=== PATIENT | female | born 1985 | race Caucasian/White ===

== ENCOUNTER 2016-11-16 17:49 | Emergency (ER) | payer OTHER ==
[~2016-11-16] VITALS: Ht 142.2 cm; Wt 102.8 kg
[2016-11-16 17:54] VITALS: TEMP 36.7; Ht 142.2 cm; Wt 102.8 kg
[2016-11-16] MEDS ORDERED: IBUP-1050 PO (19:02)
--- NOTE | 2016-11-16 19:56 | DIAGNOSTIC IMAGING REPORT ---
ULTRASOUND LEFT LOWER EXTREMITY VENOUS CLINICAL HISTORY: Left groin pain radiating to the foot. COMPARISON STUDY: No priors. TECHNIQUE: Real-time, grayscale, and color Doppler sonography of the deep veins of the left lower extremity was performed from the inguinal crease to the calf. Compression and augmentation were utilized. FINDINGS: There is no sonographic evidence of deep venous thrombosis identified in the left lower extremity. The common femoral, superficial femoral, and popliteal veins are patent and normally compressible. The greater saphenous vein and the profunda femoris vein at the junction with the common femoral vein are clear. The visualized calf veins are patent. IMPRESSION: There is no sonographic evidence of deep venous thrombosis identified in the left lower extremity. Electronically signed by: Monroe Feng M.D. 11/16/2016 7:54 PM Dictated Date/Time: 11/16/2016 7:54 PM
[2016-11-16 20:03] VITALS: BP 147/84; PULSE 76; O2SAT 98
[2016-11-16] MEDS ORDERED: METH4PAK PO (20:15)
--- NOTE | 2016-11-17 00:29 | EMERGENCY ROOM VISIT NOTE ---
History First contact with patient: 18:02 Chief Complaint: GROIN PAIN Stated Complaint: GROIN PAIN History of Present Illness The patient is a 31 year old female who presents to the Emergency Room with complaints of left groin pain radiating into her leg and great toe. The patient reports that her groin pain started when she stood up from a chair at work today, feeling a sharp stabbing pain. The patient is concerned that she may potentially have a blood clot. She denies any prior history of DVT or coagulopathies. The patient denies oral contraceptive use. She is a smoker. She does have a history of chronic lower back pain, but currently has not noticed any pain in the back or left buttock. She has no worsening groin pain with weightbearing, and denies any history of chronic hip pain or other significant arthritic history. She rates her discomfort a 6 out of 10. Review of Systems 10 system review was performed and was negative except for pertinent positives and negatives as indicated in history of present illness Past Medical/Surgical History Medical Problems: (1) Gestational hypertension (2) Morbid obesity with BMI of 50.0-59.9, adult (3) Pyelonephritis Surgical Problems: (1) History of delivery (2) History of tonsillectomy and adenoidectomy (3) History of wisdom tooth extraction (4) Status post biopsy of kidney Family History FH: cancer FH: diabetes mellitus FH: gallbladder disease FH: heart disease FH: hypertension FH: kidney disease FH: lung disease Social History Smoking Status: Current Every Day Smoker Alcohol Use: none Marital Status: single Housing Status: lives with family Occupation Status: employed Current/Historical Medications Scheduled Methylprednisolone (Medrol Dosepak), 1 PKT PO UD Scheduled PRN Ibuprofen (Advil), 200-600 MG PO Q4H PRN for Pain Allergies Coded Allergies: No Known Allergies (Unverified , 11/16/16) Physical Exam Vital Signs Date Time Temp Pulse Resp B/P (MAP) Pulse Ox O2 Delivery O2 Flow Rate FiO2 11/16/16 20:03 76 18 147/84 98 Room Air 11/16/16 17:54 36.7 81 17 143/101 99 Room Air Physical Exam CONSTITUTIONAL: Morbidly obese female. Patient does not appear in any acute distress. HEENT: Normocephalic, atraumatic. Pupils equal, round and reactive. NECK: Full active range of motion without discomfort. RESPIRATORY: Clear to auscultation bilaterally with no wheezing, crackles, rhonchi or stridor. CARDIOVASCULAR: Regular rate and rhythm with no murmurs, rubs or gallops. GASTROINTESTINAL: Bowel sounds present in all quadrants. Soft and nontender to palpation. Negative CVA tenderness. MUSCULOSKELETAL: Examination does not show any tenderness to palpation through the lower lumbar spine, paraspinous muscles or SI joints. Negative logroll. Negative straight leg raise. The patient has tenderness to palpation over the left anterior groin. She otherwise has no tenderness to palpation through the thighs or calves. No joint effusion or popliteal masses. Pedal pulses are intact. Negative Homans sign. INTEGUMENTARY: No rash or other significant dermatologic conditions noted. NEUROLOGIC: No focal neurologic deficits noted. Left foot and toes are sensory intact Medical Decision & Procedures ER Provider Diagnostic Interpretation: Venous ultrasound of the left lower extremity is negative for deep vein thrombosis. Radiologist report is as follows: ULTRASOUND LEFT LOWER EXTREMITY VENOUS CLINICAL HISTORY: Left groin pain radiating to the foot. COMPARISON STUDY: No priors. TECHNIQUE: Real-time, grayscale, and color Doppler sonography of the deep veins of the left lower extremity was performed from the inguinal crease to the calf. Compression and augmentation were utilized. FINDINGS: There is no sonographic evidence of deep venous thrombosis identified in the left lower extremity. The common femoral, superficial femoral, and popliteal veins are patent and normally compressible. The greater saphenous vein and the profunda femoris vein at the junction with the common femoral vein are clear. The visualized calf veins are patent. IMPRESSION: There is no sonographic evidence of deep venous thrombosis identified in the left lower extremity. ED Course Patient history and physical exam were performed. Nurse's notes were reviewed. Vital signs were reviewed, showing an elevated blood pressure of 143/101 in triage. The patient refused any analgesics while in the emergency department. Venous ultrasound of the left lower extremity was normal. The patient was advised that her symptoms are most consistent with a lumbar radiculopathy. She was encouraged to follow-up with her PCP for further reevaluation and management. She was encouraged to intermittently apply ice to the lower back. Ibuprofen and Tylenol in alternating fashion as needed for additional pain relief. The patient was provided a prescription for a Medrol Dosepak should her pain progressively worsen. The patient was happy with plan of care, and denied any significant pain at the time of discharge. The patient's blood pressure was also elevated at discharge, with a reading of 147/84. The patient was instructed to follow-up with her PCP for blood pressure recheck. Medical Decision Impression Primary Impression: Left lumbar radiculopathy Additional Impression: Elevated blood pressure reading Departure Information Prescriptions Methylprednisolone (MEDROL DOSEPAK) 4 Mg Jhonny 1 PKT PO UD for 6 Days, #1 PKT Prov: Lucas Braswell PA 11/16/16 Referrals Yasmeen Brooke (PCP) Patient Instructions My [facility] Problem Qualifiers
== END 2016-11-16 20:21 | disposition home or self-care (01) ==
LOC: C.EDB 17:51 → C.EDD 20:21
DX: M54.16 Radiculopathy, lumbar region (principal); R03.0 Elevated blood-pressure reading, without diagnosis of hypertension; E66.01 Morbid (severe) obesity due to excess calories; Z80.9 Family history of malignant neoplasm, unspecified; Z83.3 Family history of diabetes mellitus; Z82.49 Family history of ischemic heart disease and other diseases of the circulatory system; Z84.1 Family history of disorders of kidney and ureter; Z83.6 Family history of other diseases of the respiratory system; F17.210 Nicotine dependence, cigarettes, uncomplicated

== ENCOUNTER → 2017-01-11 | Outpatient (CLI) | payer OTHER ==
[~2017-01-11] MED LIST: CEPH500C2 PO; IBUP-1050 PO
== END | disposition home or self-care (01) ==
LOC: C.LABPVFM 16:11
PROVIDERS: ATTEND Family Medicine
DX: R63.5 Abnormal weight gain (principal); R30.0 Dysuria

== ENCOUNTER 2017-02-28 17:42 | Emergency (ER) | payer OTHER ==
[~2017-02-28] VITALS: Ht 142.2 cm; Wt 102.2 kg
[~2017-02-28 17:42] MED LIST changes: -CEPH500C2 PO
[2017-02-28 17:52] VITALS: TEMP 36.8; Ht 142.2 cm; Wt 102.2 kg
--- NOTE | 2017-02-28 18:13 | EMERGENCY ROOM VISIT NOTE ---
ED Visit Note First contact with patient: 18:01 CHIEF COMPLAINT: Infection on the left breast. HISTORY OF PRESENT ILLNESS: This 32-year-old female presents the ER with chief complaint of infection on her left breast. The patient states that yesterday she noticed a small red bump on her left breast. She squeezed it but nothing came out. Today after work she came home and noticed that the lump was slightly larger. She squeezed it and some red/yellow fluid came out. The patient denies any surrounding redness to the breast or any fever. The patient denies any palpable lumps. REVIEW OF SYSTEMS: 6 system review was performed and was negative unless stated otherwise in history of present illness. PMH: The patient is healthy; SOCIAL HISTORY: Patient admits to tobacco use but denies any alcohol use. PHYSICAL EXAM: Vital Signs: Were reviewed Reviewed Nurse's notes. GENERAL: 32- year-old white female appears in no acute distress. MENTAL Status: Alert and oriented 3. LEFT BREAST: There is approximately 1 cm erythematous lesion on the lower outer quadrant without any active draining. No surrounding erythema is noted. The breast is nontender to palpation without any palpable masses or fluctuance. EMERGENCY DEPARTMENT COURSE: The patient was evaluated. Antibiotic ointment and a bandage was applied to the area. The patient will prophylactically be treated with Keflex. The patient was discharged home in stable condition. DIAGNOSIS: Skin infection left breast DISCHARGE INSTRUCTIONS & TREATMENT: Keep area covered to prevent the area from becoming irritated. Take Keflex as prescribed. Any worsening of symptoms, follow-up with your family doctor. Current/Historical Medications Scheduled PRN Ibuprofen (Advil), 200-600 MG PO Q4H PRN for Pain Allergies Coded Allergies: No Known Allergies (Unverified , 11/16/16) Vital Signs Date Time Temp Pulse Resp B/P (MAP) Pulse Ox O2 Delivery O2 Flow Rate FiO2 02/28/17 17:52 36.8 75 16 186/125 97 Room Air Departure Information Referrals Yasmeen Brooke (PCP) Patient Instructions My [facility]
[2017-02-28] MEDS ORDERED: CEPH500C2 PO (18:14)
[2017-02-28 18:23] VITALS: BP 155/90; PULSE 75; O2SAT 97
== END 2017-02-28 18:36 | disposition home or self-care (01) ==
LOC: C.EDB 17:43 → C.EDD 18:36
DX: L08.9 Local infection of the skin and subcutaneous tissue, unspecified (principal); F17.200 Nicotine dependence, unspecified, uncomplicated

== ENCOUNTER → 2017-04-25 | Outpatient (CLI) | payer OTHER ==
[2017-04-25 17:56] LABS: BLOOD UREA NITROGEN 13 mg/dl (7-18); BUN/CREATININE RATIO 17.9 (10-20); CALCIUM 8.8 mg/dl (8.5-10.1); CARBON DIOXIDE 28 mmol/L (21-32); CHLORIDE 103 mmol/L (98-107); GLUCOSE 79 mg/dl (70-99); POTASSIUM 3.9 mmol/L (3.5-5.1); SODIUM 140 mmol/L (136-145)
== END | disposition home or self-care (01) ==
LOC: C.LABPVFM 12:06
PROVIDERS: ATTEND Nurse Practitioner Family
DX: M54.9 Dorsalgia, unspecified (principal)

== ENCOUNTER 2017-05-17 23:22 | Emergency (ER) | payer OTHER ==
[~2017-05-17] VITALS: Ht 142.2 cm; Wt 97.6 kg
[2017-05-17 23:23] VITALS: TEMP 36.9; Ht 142.2 cm; Wt 97.6 kg
[2017-05-17] MEDS ORDERED: DEXAMETHASONE SOD INJ 4 MG/ML VIAL IV STA (23:31)
[2017-05-17] MEDS ORDERED: DiphenhydrAMINE HCL 50 MG/ML VIAL IV STA (23:31)
[2017-05-17] MEDS ORDERED: PROCHLORPERAZINE 5 MG/ML 2 ML VIAL IV STA (23:31)
[2017-05-17 23:53] LABS: BASO % 0.1 %; BASO ABS # 0.01 K/uL (0-0.2); COMPLETE YES; EOS % 0.4 %; HEMATOCRIT 39.4 % (37-47); IG% 0.4 %; LYMPH % 11.2 %; MEAN CELL VOLUME 82.3 fL (80-100); MEAN CORPUSCULAR HEMOGLOBIN 27.8 pg (25-34); MEAN CORPUSCULAR HGB CONC 33.8 g/dl (32-36); MEAN PLATELET VOLUME 9.6 fL (7.4-10.4); MONO % 6.5 %; NEUT % 81.4 %; PLATELET COUNT 248 K/uL (130-400); RED BLOOD COUNT 4.79 M/uL (4.2-5.4); WHITE BLOOD COUNT 9.83 K/uL (4.8-10.8)
[2017-05-18 00:17] LABS: BUN/CREATININE RATIO 23.7 (10-20); CALCIUM 8.1 mg/dl (8.5-10.1); CREATININE 0.76 mg/dl (0.60-1.20); POTASSIUM 3.5 mmol/L (3.5-5.1)
[2017-05-18 00:50] VITALS: BP 122/85; PULSE 89; O2SAT 95
--- NOTE | 2017-05-18 01:21 | EMERGENCY ROOM VISIT NOTE ---
History Report prepared by Betito: Toña Dos Santos Under the Supervision of: Dr. Miguelito Feldman M.D. First contact with patient: 23:25 Chief Complaint: HEADACHE Stated Complaint: HEADACHE History of Present Illness The patient is a 32 year old female who presents to the Emergency Room with complaints of a worsening headache starting 13 hours ago. The patient states that 3 weeks ago she was diagnosed with bilateral corneal and retinal swelling by her laundry operator wash room. She notes that they also diagnosed her with bilateral cataracts. She states that she went since she was seeing halos. The patient states that she was then referred to a neurologist to make sure everything checked out. She notes that she has had headaches for a year. She states that these feel the same except that she has been vomiting. She reports that the pain is behind her right eye and it feels "like an ice pick is being drive through her head." The headache was gradual in onset. The patient denies a fever. She notes that the pain is worse with light. She reports that she has been taking Tylenol and Ibuprofen with little relief. She denies the chance of . She denies any imaging of her head since she started having headaches. Source of History: patient Onset: 13 hours ago Position: head Quality: other (ice pick being drove through her head) Timing: worsening Modifying Factors (Worsening): other (light) Associated Symptoms: + vomiting, No fevers Review of Systems See HPI for pertinent positives & negatives. A total of 10 systems reviewed and were otherwise negative. Past Medical & Surgical Medical Problems: (1) Cataracts, bilateral (2) corneal swelling (3) Gestational hypertension (4) Morbid obesity with BMI of 50.0-59.9, adult (5) Pyelonephritis (6) retinal swelling Surgical Problems: (1) History of delivery (2) History of tonsillectomy and adenoidectomy (3) History of wisdom tooth extraction (4) Status post biopsy of kidney Family History FH: cancer FH: diabetes mellitus FH: gallbladder disease FH: heart disease FH: hypertension FH: kidney disease FH: lung disease Social History Smoking Status: Former Smoker Alcohol Use: none Marital Status: single Housing Status: lives with family Occupation Status: employed Current/Historical Medications No Active Prescriptions or Reported Meds Allergies Coded Allergies: BEE STING (Unverified Allergy, Unknown, SWELLING, 05/17/17) Physical Exam Vital Signs Date Time Temp Pulse Resp B/P (MAP) Pulse Ox O2 Delivery O2 Flow Rate FiO2 05/18/17 00:50 89 18 122/85 95 05/17/17 23:23 36.9 100 18 134/89 97 Room Air Physical Exam Constitutional: Vital signs reviewed. Eyes: Pupils are equal round reactive to light. Conjunctiva are noninjected. ENT: Pharynx is clear without erythema or exudate. Mucous membranes are moist. Neck supple without meningeal signs. Respiratory: Clear to auscultation bilaterally. Breath sounds are equal bilaterally. Cardiovascular: Regular rate and rhythm. No rubs or gallops. GI: Soft, nondistended and nontender. Bowel sounds are present. Musculoskeletal: No peripheral edema. No lower extremity tenderness. Integumentary: No cyanosis. Neurological: The patient is awake and alert. Cranial nerves II-XII are intact. Motor is 5 out of 5 all extremities. Sensation is intact to light touch all extremities. Normal speech. No pronator drift. Psychiatric: Normal affect. Medical Decision & Procedures ER Provider Diagnostic Interpretation: Radiology results as stated below per my review and the radiologist's interpretation: CT HEAD: Comparison: None Impression: No acute intracranial hemorrhage or hydrocephalus. Comment: No evidence of intracranial mass, extra-axial fluid collection, or acute territorial infarct. Visualized paranasal sinuses and mastoid air cells are clear. Radiologist: Nino Lacey MD Study ready at 00:02 and initial results transmitted at 00:28. Laboratory Results 05/17/17 23:45 Red Blood Count 4.79, Mean Corpuscular Volume 82.3, Mean Corpuscular Hemoglobin 27.8, Mean Corpuscular Hemoglobin Concent 33.8, Mean Platelet Volume 9.6, Neutrophils (%) (Auto) 81.4, Lymphocytes (%) (Auto) 11.2, Monocytes (%) (Auto) 6.5, Eosinophils (%) (Auto) 0.4, Basophils (%) (Auto) 0.1, Neutrophils # (Auto) 8.00, Lymphocytes # (Auto) 1.10, Monocytes # (Auto) 0.64, Eosinophils # (Auto) 0.04, Basophils # (Auto) 0.01 05/17/17 23:45 Test 05/17/17 23:45 White Blood Count 9.83 K/uL (4.8-10.8) Red Blood Count 4.79 M/uL (4.2-5.4) Hemoglobin 13.3 g/dL (12.0-16.0) Hematocrit 39.4 % (37-47) Mean Corpuscular Volume 82.3 fL (80-100) Mean Corpuscular Hemoglobin 27.8 pg (25-34) Mean Corpuscular Hemoglobin Concent 33.8 g/dl (32-36) Platelet Count 248 K/uL (130-400) Mean Platelet Volume 9.6 fL (7.4-10.4) Neutrophils (%) (Auto) 81.4 % Lymphocytes (%) (Auto) 11.2 % Monocytes (%) (Auto) 6.5 % Eosinophils (%) (Auto) 0.4 % Basophils (%) (Auto) 0.1 % Neutrophils # (Auto) 8.00 K/uL (1.4-6.5) Lymphocytes # (Auto) 1.10 K/uL (1.2-3.4) Monocytes # (Auto) 0.64 K/uL (0.11-0.59) Eosinophils # (Auto) 0.04 K/uL (0-0.5) Basophils # (Auto) 0.01 K/uL (0-0.2) RDW Standard Deviation 41.1 fL (36.4-46.3) RDW Coefficient of Variation 13.7 % (11.5-14.5) Immature Granulocyte % (Auto) 0.4 % Immature Granulocyte # (Auto) 0.04 K/uL (0.00-0.02) Anion Gap 6.0 mmol/L (3-11) Est Creatinine Clear Calc Drug Dose 101.1 ml/min Estimated GFR () 119.5 Estimated GFR (Non- 103.1 BUN/Creatinine Ratio 23.7 (10-20) Calcium Level 8.1 mg/dl (8.5-10.1) Laboratory results as reviewed by me. Medications Administered Medications (Trade) Dose Ordered Sig/Tejinder Route Start Time Stop Time Status Last Admin Dose Admin Prochlorperazine Edisylate (Compazine Inj) 10 mg NOW STAT IV 05/17/17 23:31 05/17/17 23:33 DC 05/17/17 23:43 10 MG Diphenhydramine HCl (Benadryl Inj) 50 mg NOW STAT IV 05/17/17 23:31 12 23:33 DC 05/17/17 23:43 50 MG Dexamethasone Sodium Phosphate (Decadron Inj) 10 mg NOW STAT IV 05/17/17 23:31 12 23:33 DC 05/17/17 23:43 10 MG ED Course 2326: The patient was evaluated in room B9. A complete history and physical exam was performed. 2331: Ordered Decadron Inj 10 mg IV, Benadryl Inj 50 mg IV, Compazine Inj 10 mg IV. 0040: Upon reevaluation, the patient appeared to have improvement of her symptoms. I discussed tonight's findings with her. She verbalized agreement of the treatment plan. The patient was discharged home. Medical Decision This is a 32-year-old female presents with a headache. Differential diagnosis includes migraine headache, tension headache, intracranial mass, intracranial hemorrhage, hydrocephalus. I did perform a limited focused review of portions of the patient's old chart on the electronic medical record. The patient has had no recent pertinent visits to this hospital. I did evaluate the patient as noted above. The patient has been having headaches for about a year. She has been seen by her eye doctor and referred to neurology. He has had no imaging of her head. She is neurologically intact and afebrile. She states the headache she has today is identical to her prior headaches except she has vomiting today. Denies any injury. IV access was established. I did treat patient with IV Compazine and Benadryl. She was also given Decadron IV. I did order and review the patient's blood work as noted in the electronic medical record. Her white blood cell count is not elevated. The patient declined any testing for . I did order a CT of the head. I did review the images myself as well as the radiology report as described above. There is no evidence of acute intracranial process. There is no hydrocephalus or mass. I did reassess the patient. The patient states she is feeling better. She is ready for discharge. She was advised follow up closely with her doctor as well as to keep her appointment with her neurologist. She was given return instructions as outlined below and discharged in good condition. Medication Reconcilliation Current Medication List: was personally reviewed by me Blood Pressure Screening Patient's blood pressure: Elevated blood pressure Blood pressure disposition: Elevated BP felt to be situational Impression Primary Impression: Chronic headache Scribe Attestation The scribe's documentation has been prepared under my direct and personally reviewed by me in its entirety. I confirm that the note above accurately reflects all work, treatment, procedures, and medical decision making performed by me. Departure Information Dispostion Home / Self-Care Prescriptions No Active Prescriptions or Reported Meds Referrals Yasmeen Brooke (PCP) Forms HOME CARE DOCUMENTATION FORM, IMPORTANT VISIT INFORMATION Patient Instructions My [facility] Additional Instructions You have been examined and treated today on an emergency basis only. This is not a substitute for, or an effort to provide, complete comprehensive medical care. It is impossible to recognize and treat all injuries or illnesses in a single emergency department visit. It is therefore important that you follow up closely with your physician. Call as soon as possible for an appointment. Return for worsening symptoms or if you develop fever, numbness or weakness on one side of your body, difficulties with your speech or walking, or any other concerning symptoms. Problem Qualifiers Primary Impression: Chronic headache Headache type: unspecified Intractability: not intractable Qualified Codes : R51 - Headache
--- NOTE | 2017-05-18 06:42 | DIAGNOSTIC IMAGING REPORT ---
CT HEAD WITHOUT CONTRAST (CT) CLINICAL HISTORY: Headache, retinal swelling. Nausea, vomiting. COMPARISON STUDY: No previous studies for comparison. TECHNIQUE: Axial CT of the brain is performed from the vertex to the skull base. IV contrast was not administered for this examination. A dose lowering technique was utilized adhering to the principles of ALARA. CT DOSE: 537.48 mGy.cm FINDINGS: No intra or extra-axial mass lesions are visualized. There is no CT evidence of acute cortical infarction. There is no evidence of midline shift. There is no acute hemorrhage. No calvarial fractures are visualized. There is no evidence of pathologic ventricular dilatation. There is no evidence of acute sinusitis IMPRESSION: Normal noncontrast head CT. Electronically signed by: Jesus Alberto Vanegas M.D. 05/18/2017 6:41 AM Dictated Date/Time: 05/18/2017 6:40 AM
== END 2017-05-18 00:51 | disposition home or self-care (01) ==
LOC: EDBD 23:22 → C.EDB 23:23
DX: R51 Headache (principal); H26.9 Unspecified cataract; H18.20 Unspecified corneal edema; H35.81 Retinal edema; E66.01 Morbid (severe) obesity due to excess calories; Z87.891 Personal history of nicotine dependence; Z83.3 Family history of diabetes mellitus; Z82.49 Family history of ischemic heart disease and other diseases of the circulatory system

== ENCOUNTER → 2017-06-02 | Outpatient (CLI) | payer OTHER ==
[~2017-06-02] MED LIST changes: +GADAVIST IV PRN; -IBUP-1050 PO
--- NOTE | 2017-06-02 12:14 | DIAGNOSTIC IMAGING REPORT ---
BRAIN COMBO FOR ORBITS HISTORY: 32 years-old Female R51 [id number] Visual [id number] reported cataracts COMPARISON: CT head 05/17/2017 TECHNIQUE: Multiplanar multisequence MRI of the brain was obtained utilizing orbits protocol. Images with and without the use of 10 mL Gadavist were obtained. FINDINGS: No restricted diffusion. Midline structures including the corpus callosum, brainstem, optic chiasm and pineal gland are unremarkable. No cerebellar tonsillar herniation. The sella appears partially empty. Mild adenoid tonsillar hypertrophy. No acute intracranial hemorrhage, midline shift, abnormal extra-axial collections, hydrocephalus or intracranial mass identified. The bilateral seventh and eighth and trigeminal nerves appear unremarkable. The bilateral globes and orbits are unremarkable. No intraluminal mass identified. The bilateral optic nerves and extraocular muscles appear unremarkable. Superior ophthalmic veins appear unremarkable. No abnormal enhancement identified. Moderate mucosal thickening of the ethmoid air cells and inferior right maxillary antrum. Mastoid air cells are clear. Scalp, calvarium and soft tissues are unremarkable. IMPRESSION: Unremarkable MRI of the brain and orbits. No abnormal enhancement. The above report was generated using voice recognition software. It may contain grammatical, syntax or spelling errors. Electronically signed by: Leandro Hamilton M.D. 06/02/2017 12:13 PM Dictated Date/Time: 06/02/2017 12:03 PM
== END | disposition home or self-care (01) ==
LOC: C.MRI 10:14
PROVIDERS: ATTEND Psychiatry & Neurology Neurology
DX: H53.9 Unspecified visual disturbance (principal); R51 Headache

== ENCOUNTER 2017-08-08 11:13 | Emergency (ER) | payer OTHER ==
[~2017-08-08] VITALS: Ht 142.2 cm; Wt 100.0 kg
[~2017-08-08 11:13] MED LIST changes: +ACET-1256 PO; +CEPH500C PO; -GADAVIST IV PRN; +HYDR-5688 PO; +SULF800T23 PO
[2017-08-08 11:25] VITALS: TEMP 36.6; Ht 142.2 cm; Wt 100.0 kg
[2017-08-08] MEDS ORDERED: SERT50TA PO (12:21)
--- NOTE | 2017-08-08 12:56 | DIAGNOSTIC IMAGING REPORT ---
RIGHT AXILLARY ULTRASOUND CLINICAL HISTORY: R axillary induration, edema, erythema. Concerned for abscess COMPARISON STUDY: No previous studies for comparison. FINDINGS: Sonography of the right axilla demonstrated a 2 x 1.3 x 1.2 cm subcutaneous hypoechoic heterogeneous focus suggestive of an abscess. In addition, there was a 0.7 x 0.4 x 0.5 cm subcutaneous hypoechoic focus which contains fluid. IMPRESSION: Two right axillary subcutaneous hypoechoic foci, measuring up to 2 x 1.3 x 1.2 cm. These are suggestive of abscesses. Electronically signed by: Morgan Yost M.D. 08/08/2017 12:55 PM Dictated Date/Time: 08/08/2017 12:54 PM
[2017-08-08] MEDS ORDERED: LIDOCAINE/EPINEPHRINE 1% 20 ML VIAL INFIL STA (13:05)
--- NOTE | 2017-08-08 13:52 | EMERGENCY ROOM VISIT NOTE ---
ED Visit Note First contact with patient: 11:40 Chief Complaint: "Recheck lump under right arm". History of Present Illness: This patient is a 32-year-old female who presents to the Emergency Department via private vehicle accompanied by female for evaluation of their right arm erythema and swelling. She notes that she was seen here recently and was placed upon Keflex and Bactrim of which she has been taking but notes that the redness and swelling is now worse and believes that they should be drained. She rates the overall pain as a 7/10. She is right- hand dominant. She notes that her temp oral temperature was 100.6F. Medications: As noted below Allergies: Bee stings PMH: No pertinent SHx: Patient lives locally. ROS: All pertinent positive and negative review of systems are appropriately documented in the History of Present Illness. Physical Exam: VITAL SIGNS - Vital signs and nursing notes were reviewed. Stable. Afebrile. GENERAL -32-year-old female appearing her stated age who is in no acute distress. Communicates well with provider and answers questions appropriately. SKIN - in the right axilla on the body, there is a 2 cm indurated region that is slightly raised and tender. There is also erythema tracking inferiorly. There is also a small similar appearing nodule that is half centimeter by half centimeter just inferior to this region. MUSCULOSKELETAL -full range of motion of the right upper extremity. IMAGING: RIGHT AXILLARY ULTRASOUND CLINICAL HISTORY: R axillary induration, edema, erythema. Concerned for abscess COMPARISON STUDY: No previous studies for comparison. FINDINGS: Sonography of the right axilla demonstrated a 2 x 1.3 x 1.2 cm subcutaneous hypoechoic heterogeneous focus suggestive of an abscess. In addition, there was a 0.7 x 0.4 x 0.5 cm subcutaneous hypoechoic focus which contains fluid. IMPRESSION: Two right axillary subcutaneous hypoechoic foci, measuring up to 2 x 1.3 x 1.2 cm. These are suggestive of abscesses. Electronically signed by: Morgan Yost M.D. 08/08/2017 12:55 PM Dictated Date/Time: 08/08/2017 12:54 PM Verbal consent was obtained to perform the procedure. After saline and Betadine cleansing and 4 mL of 1% buffered lidocaine w/ epi anesthesia, the abscess was incised with a number 11 scalpel blade. A large amount of purulent material was released with more expressed by pressure. A swab was obtained for culture. The abscess cavity was further probed with a needle industrial tractor driver and the deep pocket expressed. The abscess cavity was then copiously irrigated with sterile saline under pressure. The area was then packed with a small strip of packing. The area was cleaned with sterile saline and dressed with bacitracin and a bulky bandage. Attention was then turned to the inferior region, however only a minimal amount of purulence was expressed. The patient tolerated the procedure well. She appears stable for outpatient management. She is to continue the Keflex and Bactrim. The erythema was outlined. She is to return in 48 hours for recheck or with her family doctor. She was educated upon management, educated upon worrisome symptoms which to return, had questions answered to discharge, and was discharged home in good condition. Current/Historical Medications Scheduled Cephalexin Monohydrate (Keflex), 500 MG PO QID Sertraline (Zoloft), 50 MG PO DAILY Sulfa/Trimethoprim (Bactrim Ds 800MG/160MG), 1 TAB PO BID Scheduled PRN Hydrocodone/Acetaminophen 5MG/325MG ([place] 5MG/325MG), 1-2 TABLET PO Q6H PRN for Pain Allergies Coded Allergies: BEE STING (Verified Allergy, Unknown, SWELLING, 08/08/17) Vital Signs Date Time Temp Pulse Resp B/P (MAP) Pulse Ox O2 Delivery O2 Flow Rate FiO2 08/08/17 14:04 73 16 147/105 97 08/08/17 13:07 72 16 173/107 96 Room Air 08/08/17 11:25 36.6 93 18 144/99 97 Room Air Departure Information Impression Primary Impression: Abscess of axilla, right Dispostion Home / Self-Care Condition GOOD Referrals Yasmeen Brooke (PCP) Patient Instructions My [facility] Additional Instructions Discharge Instructions: Proper wound care is essential for adequate wound healing and infection prevention. You can shower and clean the wound with soap and water. Do not scour over the wound, pat dry with a towel. Do not submerse the wound (i.e. bathe or dish wash) for 5 days. Dressing changes daily and return in 2 days for recheck or with family doctor. Look for signs of infection of the wound including: increased pain, swelling, foul discharge, streaking, or increased temperature. If any of these are noticed you should return to the Emergency Department for further assessment and treatment. You can also use scar reducing creams or Vitamin E oil to help minimize scarring. For pain control, you can use the following [id number] medicines : - Regular strength (325mg/tab) Tylenol (acetaminophen) 2 tabs every 4-6 hours as needed. Do not exceed 12 tablets in a 24 hour period. Avoid taking more than 3 grams (3000 mg) of Tylenol per day. This includes any other sources of acetaminophen you may take on a regular basis. - Regular strength (200 mg/tab) Advil (ibuprofen) 1-2 tabs every 4-6 hours as needed. Do not exceed a dose of 3200 mg per day. Return to the emergency department if your symptoms worsen despite treatment course outlined above.
[2017-08-08 14:04] VITALS: BP 147/105; PULSE 73; O2SAT 97
== END 2017-08-08 14:06 | disposition home or self-care (01) ==
LOC: C.EDB 11:15 → C.EDD 14:06
DX: L02.411 Cutaneous abscess of right axilla (principal); Z91.030 Bee allergy status

== ENCOUNTER 2017-09-10 10:52 | Emergency (ER) | payer SELFPAY ==
[~2017-09-10] VITALS: Ht 142.2 cm; Wt 101.1 kg
[~2017-09-10 10:52] MED LIST changes: -ACET-1256 PO; -CEPH500C PO; +SERT50TA PO; -SULF800T23 PO
[2017-09-10 10:55] VITALS: Ht 142.2 cm; Wt 101.1 kg
[2017-09-10] MEDS ORDERED: LIDOCAINE/EPINEPHRINE 1% 20 ML VIAL INFIL STA (11:05)
[2017-09-10] MEDS ORDERED: SULFAMETHOXAZOLE/TRIMETHOPRIM DS 800/160MG TAB PO STA (11:12)
[2017-09-10] MEDS ORDERED: CEPHALEXIN MONOHYDRATE 250 MG CAP PO STA (11:12)
[2017-09-10] MEDS ORDERED: HYDROCODONE/ACETAMIN 5/325MG TAB PO STA (11:18)
--- NOTE | 2017-09-10 11:57 | EMERGENCY ROOM VISIT NOTE ---
History First contact with patient: 11:00 Chief Complaint: ARM PAIN Stated Complaint: ABCESS UNER BOTH ARMS IN ARMPIT History of Present Illness The patient is a 32 year old female who presents to the Emergency Room via private vehicle accompanied by female with complaints of "abscesses under both arms". The patient states that she has a history of abscesses in her axilla, and for the past week has been experiencing 2 new ones. One is in each axilla. She rates her overall pain as an 8/10. She notes no antibiotics at the present time. When the last one was drained it seemed to dissipate. She relates that this may be secondary to shaving. She notes fevers initially but now feels well, and has no fevers or chills. Tetanus is up-to-date. Review of Systems A complete 10-point Review of Systems was discussed with the patient, with pertinent positives and negatives listed in the History of Present Illness. All remaining Review of Systems questions can be considered negative unless otherwise specified. Past Medical/Surgical History Medical Problems: (1) Cataracts, bilateral (2) corneal swelling (3) Gestational hypertension (4) Morbid obesity with BMI of 50.0-59.9, adult (5) Pyelonephritis (6) retinal swelling Surgical Problems: (1) History of delivery (2) History of tonsillectomy and adenoidectomy (3) History of wisdom tooth extraction (4) Status post biopsy of kidney Family History FH: cancer FH: diabetes mellitus FH: gallbladder disease FH: heart disease FH: hypertension FH: kidney disease FH: lung disease Social History Smoking Status: Current Every Day Smoker Alcohol Use: none Marital Status: single Housing Status: lives with family Occupation Status: employed Current/Historical Medications Scheduled Cephalexin Monohydrate (Keflex), 500 MG PO QID Sertraline (Zoloft), 50 MG PO QAM Sulfa/Trimethoprim (Bactrim Ds 800MG/160MG), 1 TAB PO BID Scheduled PRN Fluticasone Propionate (Nasal) (Flonase Allergy Relief), 1 SPRAY INH UD PRN for CONGESTION Hydrocodone/Acetaminophen 5MG/325MG ([place] 5MG/325MG), 1-2 TABLET PO Q6 PRN for Pain Ibuprofen (Advil), 200 MG PO UD PRN for Pain Physical Exam Vital Signs Date Time Temp Pulse Resp B/P (MAP) Pulse Ox O2 Delivery O2 Flow Rate FiO2 09/10/17 14:14 36.6 65 18 120/80 96 09/10/17 14:00 65 18 120/80 96 Room Air 09/10/17 10:55 36.6 75 18 154/110 97 Room Air Physical Exam VITAL SIGNS - Vital signs and nursing notes were reviewed. Stable. GENERAL - 32-year-old female appearing her stated age who is in no acute distress. Communicates well with provider and answers questions appropriately. SKIN - Without rashes. No meningeal or petechial rash. The right axilla there is a 2 cm diameter indurated region consistent with an abscess. There is also a 1 cm in the left axilla favoring the left arm proximally. HEAD - NC/AT. EYES - PERRL with EOMI bilaterally. Sclera anicteric. EARS - No deformities of external structures noted on gross examination bilaterally. No pain elicited with palpation of the tragus bilaterally. External auditory canals without discharge or otorrhea. Tympanic membranes pearly ureña without retraction or bulging. No fluid or purulent material visualized behind the TM. Handle of malleus, umbo, cone of light, pars tensa/ flaccid all easily visualized. NOSE - Midline and without cyanosis. No epistaxis or purulent drainage noted. MOUTH/OROPHARYNX - Without perioral cyanosis. NECK - Neck with FROM. No nuchal rigidity. LUNGS - Chest wall symmetric without accessory muscle use, intercostals retractions, or central cyanosis. Normal vesicular breath sounds CTA B/L. No wheezes, rales, or rhonchi appreciated. CARDIAC - RRR with S1/S2. No murmur, rubs, or gallops appreciated. ABDOMEN - Abdominal contour normal without pulsations or visible masses. BS normoactive all four quadrants. EXTREMITIES - No clubbing or peripheral cyanosis. No pretibial edema present.+5/ 5 strength noted in UE/LE bilaterally. NEUROLOGIC - Cranial nerves II through XII grossly intact. Sensory intact to light touch throughout. PSYCH - A&O, and cooperates fully with examiner. Pt is very pleasant and interacts well with examiner. Medical Decision & Procedures ER Provider Diagnostic Interpretation: ULTRASOUND RIGHT AXILLA NONVASCULAR CLINICAL HISTORY: Palpable lump. COMPARISON STUDY: Ultrasound of the right axilla dated 08/08/2017. FINDINGS: Real-time, grayscale, and color flow sonography of the right axillary region is performed. There is a complex, serpiginous, hypoechoic, and nonvascular collection identified in the right axilla at the site of interest. This measures 1.3 x 0.6 x 0.3 cm there is mild surrounding hyperemia on color imaging. The appearance suggests a tiny abscess. No lymphadenopathy is identified. IMPRESSION: There is a tiny serpiginous hypoechoic collection in the right axilla at the site of interest. The appearance suggests a tiny abscess. Clinical correlation will be required. Electronically signed by: Monroe Feng M.D. 09/10/2017 12:30 PM Dictated Date/Time: 09/10/2017 12:28 PM Medications Administered Medications (Trade) Dose Ordered Sig/Tejinder Route Start Time Stop Time Status Last Admin Dose Admin Cephalexin Monohydrate (Keflex Cap) 500 mg NOW STAT PO 09/10/17 11:12 09/10/17 11:13 DC 09/10/17 11:27 500 MG Trimethoprim/ Sulfamethoxazole (Septra Ds 800/ 160MG Tab) 1 tab NOW STAT PO 09/10/17 11:12 09/10/17 11:13 DC 09/10/17 11:29 1 TAB Acetaminophen/ Hydrocodone Bitart ([place] 5/325 Tab) 1 tab NOW STAT PO 09/10/17 11:18 09/10/17 11:19 DC 09/10/17 11:30 1 TAB Medical Decision Patient was seen and evaluated as above. She presents to us today with bilateral axillary abscesses suspected. Review was performed of nursing notes and vital signs. After obtaining a thorough history and physical examination the above work up was performed. I have had the privilege of taking care of this patient on a previous visit and I am aware of her recurrence of axillary abscesses. It is suspected that when she shaves her armpits she is likely creating ingrown hairs. She is in agreement this is likely the cause however I do recommend follow-up with general surgery in case there is an underlying recurrence/ideology that needs to be addressed. She is nontoxic on exam. Consent was obtained prior to addressing the left small indurated region. Minute versus risk was discussed. 1 mL of 1% buffered lidocaine with epinephrine was utilized to anesthetize this. This was with good anesthetization. An 18-gauge needle was then introduced superficially and a large amount of purulence was expressed and further opened with an 11 blade and then with blunt dissection. Region was then cleansed with normal saline. This was packed with a small amount of gauze. I did obtain an ultrasound of the patient's right axilla as the region was not indurated/erythematous. This reveals a small abscess. I then repeated the same procedure on the right with 1 mL of 1% buffered lidocaine. Both regions were sterilely draped prior to procedure. A small amount of purulence was expressed. Culture was taken to both regions. She will be started on Keflex and Bactrim. She is to follow with general surgery as well as her family doctor/return here in 2 days for recheck/packing removal of the left axilla. She was given [place] for pain here and a small prescription at home. No red flags in the [place] drug monitoring system. She denies chance of . The patient was educated upon management, had questions answered prior to discharge, and was discharged home in good condition. In the evaluation and treatment of this patient the following differential diagnoses were entertained: Abscess, lymph node, among others. Impression Primary Impression: Bilateral arm pain Additional Impression: Axillary abscess Departure Information Dispostion Home / Self-Care Condition GOOD Prescriptions Hydrocodone/Acetaminophen 5MG/325MG ([place] 5MG/325MG) Tab 1-2 TABLET PO Q6 Y for Pain, #15 TAB For Initial Treatment Prov: Jerome Miranda PA-C 09/10/17 Sulfa/Trimethoprim (Bactrim Ds 800MG/160MG) Tab 1 TAB PO BID for 10 Days, #20 TAB Prov: Jerome Miranda PA-C 09/10/17 Cephalexin Monohydrate (Keflex) 500 Mg Cap 500 MG PO QID for 10 Days, #40 CAP Prov: Jerome Miranda PA-C 09/10/17 Referrals Yasmeen Brooke (PCP) Patient Instructions My [facility] Additional Instructions Discharge Instructions: There has been incision and drainage of your abscesses. At this time I recommend Keflex and Bactrim. You have had these before. Keflex 500 mg every 6 hours 10 days. Next dose at 6pm Bactrim is 1 tablet every 12 hours 10 days. Next dose at midnight Proper wound care is essential for adequate wound healing and infection prevention. You can shower and clean the wound with soap and water. Do not scour over the wound, pat dry with a towel. Do not submerse the wound (i.e. bathe or dish wash) for 5 days. Packing should be removed in 2 days. Please return or follow with the family doctor to have this performed. Dressing changes daily and return in 2 days for recheck or with family doctor. Look for signs of infection of the wound including: increased pain, swelling, foul discharge, streaking, or increased temperature. If any of these are noticed you should return to the Emergency Department for further assessment and treatment. You can also use scar reducing creams or Vitamin E oil to help minimize scarring. For pain control, you can use the following [id number]-[id number] medicines : - Regular strength (325mg/tab) Tylenol (acetaminophen) 2 tabs every 4-6 hours as needed. Do not exceed 12 tablets in a 24 hour period. Avoid taking more than 3 grams (3000 mg) of Tylenol per day. This includes any other sources of acetaminophen you may take on a regular basis. - Regular strength (200 mg/tab) Advil (ibuprofen) 1-2 tabs every 4-6 hours as needed. Do not exceed a dose of 3200 mg per day. As we discussed you may need to follow with a general surgeon to have further evaluation and management for your recurrent axillary abscesses. Dr. Reagan Mcneil Address: [address] [place] [address] , [place] [address] Return to the emergency department if your symptoms worsen despite treatment course outlined above. Problem Qualifiers
--- NOTE | 2017-09-10 12:31 | DIAGNOSTIC IMAGING REPORT ---
ULTRASOUND RIGHT AXILLA NONVASCULAR CLINICAL HISTORY: Palpable lump. COMPARISON STUDY: Ultrasound of the right axilla dated 08/08/2017. FINDINGS: Real-time, grayscale, and color flow sonography of the right axillary region is performed. There is a complex, serpiginous, hypoechoic, and nonvascular collection identified in the right axilla at the site of interest. This measures 1.3 x 0.6 x 0.3 cm there is mild surrounding hyperemia on color imaging. The appearance suggests a tiny abscess. No lymphadenopathy is identified. IMPRESSION: There is a tiny serpiginous hypoechoic collection in the right axilla at the site of interest. The appearance suggests a tiny abscess. Clinical correlation will be required. Electronically signed by: Monroe Feng M.D. 09/10/2017 12:30 PM Dictated Date/Time: 09/10/2017 12:28 PM
[2017-09-10] MEDS ORDERED: IBUP-1050 PO (12:58)
[2017-09-10] MEDS ORDERED: FLUT0.15 INH (12:58)
[2017-09-10] MEDS ORDERED: CEPH500C PO (13:52)
[2017-09-10] MEDS ORDERED: SULF800T23 PO (13:52)
[2017-09-10] MEDS ORDERED: HYDR-5688 PO (13:53)
[2017-09-10 14:14] VITALS: BP 120/80; PULSE 65; TEMP 36.6; O2SAT 96
--- NOTE | 2017-09-12 13:20 | Pharmacy Progress Note ---
ED Pharmacist Culture FollowUp Date of Service: Sep 12, 2017. Patient wound cultures from R and L axilla abscess growing MRSA susceptible to Bactrim. Patient had abscesses drained at visit and prescribed keflex 500 mg QID and Bactrim DS 1 tab BID x 10 days. Discussed culture results with Jerome Miranda PA-C who was provider at visit. Plan to discontinue the keflex and continue the bactrim for the 10 day duration. Called patients phone [phone] , and left message to call back at [phone].
== END 2017-09-10 14:15 | disposition home or self-care (01) ==
LOC: C.EDB 10:54 → C.EDD 14:15
DX: L02.411 Cutaneous abscess of right axilla (principal); L02.412 Cutaneous abscess of left axilla; Z79.899 Other long term (current) drug therapy; Z82.49 Family history of ischemic heart disease and other diseases of the circulatory system; Z83.3 Family history of diabetes mellitus; Z83.6 Family history of other diseases of the respiratory system; Z83.79 Family history of other diseases of the digestive system; Z84.1 Family history of disorders of kidney and ureter; F17.200 Nicotine dependence, unspecified, uncomplicated